=== PATIENT | male | born 1965 | race Hispanic/Latino ===

== ENCOUNTER 2022-06-23 18:24 | Emergency (ER) | payer OTHER ==
[~2022-06-23] VITALS: Ht 162.6 cm; Wt 89.4 kg
[2022-06-23] MEDS ORDERED: ACETAMINOPHEN 500 MG TABLET ONE (19:58)
[2022-06-23 20:00] VITALS: BP 166/85
[2022-06-23] MEDS ORDERED: ACETAMINOPHEN 500 MG TABLET PO ONE (20:00)
== END 2022-06-23 20:11 | disposition home or self-care (01) ==
LOC: EDH 18:24
DX: S80.11XA Contusion of right lower leg, initial encounter (principal); I10 Essential (primary) hypertension; E66.9 Obesity, unspecified; Z68.33 Body mass index [BMI] 33.0-33.9, adult; W19.XXXA Unspecified fall, initial encounter; Y93.89 Activity, other specified; Y92.098 Other place in other non-institutional residence as the place of occurrence of the external cause; Y99.8 Other external cause status
CPT/HCPCS: 93971

== ENCOUNTER 2022-07-25 17:46 | Emergency (ER) | payer OTHER ==
[~2022-07-25] VITALS: Ht 162.6 cm; Wt 88.9 kg
[2022-07-25 17:51] VITALS: BP 174/80
[2022-07-25] MEDS ORDERED: ACETAMINOPHEN 500 MG TABLET PO ONE (19:30)
[2022-07-25] MEDS ORDERED: ACET-66 PO (19:40)
== END 2022-07-25 19:55 | disposition home or self-care (01) ==
LOC: EDH 17:46
DX: M25.561 Pain in right knee (principal); M24.00 Loose body in unspecified joint; E78.00 Pure hypercholesterolemia, unspecified; I10 Essential (primary) hypertension; E66.9 Obesity, unspecified; Z68.33 Body mass index [BMI] 33.0-33.9, adult; W19.XXXA Unspecified fall, initial encounter; Y93.89 Activity, other specified; Y92.89 Other specified places as the place of occurrence of the external cause; Y99.8 Other external cause status
CPT/HCPCS: 73552; 73562

== ENCOUNTER 2022-11-12 15:24 | Emergency (ER) | payer BC ==
[~2022-11-12] VITALS: Ht 167.6 cm; Wt 87.5 kg
[~2022-11-12 15:24] MED LIST: ACET-66 PO
[2022-11-12] MEDS ORDERED: ACETAMINOPHEN 500 MG TABLET ONE (15:31)
[2022-11-12] MEDS ORDERED: ACETAMINOPHEN 500 MG TABLET PO ONE (16:00)
[2022-11-12 16:12] LABS: BASOPHILS % (AUTO) 0.3 % (0.0-5.0); EOSINOPHILS % (AUTO) 2.1 % (0.0-8.0); HEMATOCRIT 33.3 % (42-54); LYMPHOCYTES % (AUTO) 2.9 % (21.0-51.0); MEAN CORPUSCULAR HEMOGLOBIN 30.8 pg (27.0-33.0); MEAN CORPUSCULAR HGB CONC 35.7 g/dL (32.0-36.0); MEAN CORPUSCULAR VOLUME 86.3 fL (79-99); MONOCYTES % (AUTO) 8.3 % (3.0-13.0); NEUTROPHILS % (AUTO) 85.7 % (40.0-77.0); PLATELET COUNT (AUTO) 167 K/uL (130-400); RED BLOOD CELL COUNT(AUTO) 3.86 MIL/uL (4.50-6.20); RED CELL DISTRIBUTION WIDTH 13.2 % (11.0-15.5); WHITE BLOOD COUNT (AUTO) 7.3 K/uL (4.8-10.8)
[2022-11-12 16:30] LABS: APPEARANCE,URINE CLEAR (CLEAR); BILIRUBIN,URINE NEGATIVE (NEGATIVE); GLUCOSE, URINE (UA) NEGATIVE (NEGATIVE); KETONES,URINE NEGATIVE (NEGATIVE); LEUKOCYTE ESTERASE ,URINE NEGATIVE Leu/uL (NEGATIVE); NITRATE,URINE NEGATIVE (NEGATIVE); OCCULT BLOOD,URINE SMALL (NEGATIVE); PH,URINE 5.5 (5.0-8.0); PROTEIN,URINE 100 mg/dL (NEGATIVE); UROBILINOGEN,URINE 0.2 mg/dL (0.2-1.0)
[2022-11-12 16:30] LABS: ALBUMIN 3.5 g/dL (3.5-5.0); CREATININE 2.9 mg/dL (0.5-1.5); TOTAL PROTEIN, SERUM 6.8 g/dL (6.0-8.3)
[2022-11-12 16:35] LABS: COLOR,URINE Light-Yellow (YELLOW)
[2022-11-12 16:40] LABS: POTASSIUM 2.8 mmol/L (3.5-5.1)
[2022-11-12 16:47] LABS: BACTERIA,URINE RARE /HPF (None Seen); MUCUS,URINE RARE LPF (None Seen); RBC,URINE 0-1 /HPF (0-1); WBC,URINE 0-1 /HPF (0-1)
[2022-11-12] MEDS ORDERED: POTASSIUM BICARB/CIT AC 25 MEQ TABLET.EFF PO ONE (17:30)
[2022-11-12 19:17] VITALS: BP 151/89
== END 2022-11-12 19:28 | disposition home or self-care (01) ==
LOC: EDH 15:24
DX: U07.1 COVID-19 (principal); R50.9 Fever, unspecified; E87.6 Hypokalemia; I10 Essential (primary) hypertension; I25.2 Old myocardial infarction; E78.00 Pure hypercholesterolemia, unspecified; Z79.899 Other long term (current) drug therapy
CPT/HCPCS: 99284; 71045; 87635; 84484; 80053; 85025; 87040 ×2; 87804 ×2; 83605; 81001; 36415; 93005; C9803

== ENCOUNTER 2022-12-26 10:41 | Emergency (ER) | payer BC ==
[~2022-12-26] VITALS: Ht 162.6 cm; Wt 87.5 kg
[2022-12-26 11:31] LABS: BASOPHILS % (AUTO) 0.2 % (0.0-5.0); EOSINOPHILS % (AUTO) 1.2 % (0.0-8.0); HEMATOCRIT 33.5 % (42-54); LYMPHOCYTES % (AUTO) 2.8 % (21.0-51.0); MEAN CORPUSCULAR HEMOGLOBIN 30.6 pg (27.0-33.0); MEAN CORPUSCULAR HGB CONC 36.4 g/dL (32.0-36.0); MONOCYTES % (AUTO) 5.8 % (3.0-13.0); NEUTROPHILS % (AUTO) 89.7 % (40.0-77.0); PLATELET COUNT (AUTO) 169 K/uL (130-400); RED BLOOD CELL COUNT(AUTO) 3.99 MIL/uL (4.50-6.20); RED CELL DISTRIBUTION WIDTH 12.7 % (11.0-15.5); WHITE BLOOD COUNT (AUTO) 11.6 K/uL (4.8-10.8)
[2022-12-26 11:46] LABS: ALBUMIN 3.5 g/dL (3.5-5.0); TOTAL PROTEIN, SERUM 7.3 g/dL (6.0-8.3)
[2022-12-26] MEDS ORDERED: ACETAMINOPHEN 500 MG TABLET PO ONE (12:00)
[2022-12-26] MEDS ORDERED: ACETAMINOPHEN 500 MG TABLET PO SCH (12:00)
[2022-12-26] MEDS ORDERED: KCL 20 MEQ ERTAB PO ONE (12:30)
[2022-12-26] MEDS ORDERED: 0.9%NACL 1000ML 1,000 ML IV ONE (12:30)
[2022-12-26 12:31] LABS: APPEARANCE,URINE CLEAR (CLEAR); BILIRUBIN,URINE NEGATIVE (NEGATIVE); COLOR,URINE COLORLESS (YELLOW); GLUCOSE, URINE (UA) NEGATIVE (NEGATIVE); KETONES,URINE NEGATIVE (NEGATIVE); LEUKOCYTE ESTERASE ,URINE NEGATIVE Leu/uL (NEGATIVE); NITRATE,URINE NEGATIVE (NEGATIVE); OCCULT BLOOD,URINE SMALL (NEGATIVE); PH,URINE 5.5 (5.0-8.0); PROTEIN,URINE 100 mg/dL (NEGATIVE); UROBILINOGEN,URINE 0.2 mg/dL (0.2-1.0)
[2022-12-26] MEDS: KETOROLAC 15MG/ML VIAL (15MG/ML) IV ONE ×2 (12:43→12:45)
[2022-12-26 12:56] LABS: MUCUS,URINE RARE LPF (None Seen); RBC,URINE 0-1 /HPF (0-1)
[2022-12-26] MEDS ORDERED: CEFTRIAXONE 1G VIAL IVP ONE (13:30)
[2022-12-26] MEDS ORDERED: CEFU500T67 PO (14:34)
[2022-12-26 14:48] VITALS: BP 143/79
== END 2022-12-26 14:50 | disposition home or self-care (01) ==
LOC: EDH 10:41
DX: R50.9 Fever, unspecified (principal); D72.829 Elevated white blood cell count, unspecified; I10 Essential (primary) hypertension; E78.00 Pure hypercholesterolemia, unspecified; Z20.822 Contact with and (suspected) exposure to COVID-19
CPT/HCPCS: 99283; 96374; 87635; 96361; 80053; 85025; 87804 ×2; 81001; 36415; C9803; J7030; J0696; J1885

== ENCOUNTER 2024-09-09 03:25 | Emergency (ER) | payer BC ==
[~2024-09-09] VITALS: Ht 162.6 cm; Wt 87.1 kg
[~2024-09-09 03:25] MED LIST changes: +CEFU500T67 PO
[2024-09-09] MEDS: ondanSETRON 4MG INJ IVP ONE (03:43)
[2024-09-09] MEDS: PANTOPrazole 40 MG/VIAL IVP ONE (03:44)
[2024-09-09] MEDS: LACTATED RINGERS 1000ML 1,000 ML IV ONE (03:46)
[2024-09-09 03:49] LABS: BASOPHILS # (AUTO) 0.03 K/uL (0.00-0.20); BASOPHILS % (AUTO) 0.4 % (0.0-5.0); EOSINOPHILS # (AUTO) 0.39 K/uL (0.00-0.70); EOSINOPHILS % (AUTO) 4.6 % (0.0-8.0); HEMATOCRIT 21.8 % (42-54); IMMATURE GRANULOCYTE ABSOLUTE 0.06 K/uL (0-1); LYMPHOCYTES # (AUTO) 0.6 K/uL (1.0-4.8); LYMPHOCYTES % (AUTO) 7.3 % (21.0-51.0); MEAN CORPUSCULAR HEMOGLOBIN 31.6 pg (27.0-33.0); MEAN CORPUSCULAR HGB CONC 35.3 g/dL (32.0-36.0); MEAN CORPUSCULAR VOLUME 89.3 fL (79-99); MONOCYTES # (AUTO) 0.5 K/uL (0.1-1.0); MONOCYTES % (AUTO) 6.2 % (3.0-13.0); NEUTROPHILS # (AUTO) 6.9 K/uL (1.8-7.7); NEUTROPHILS % (AUTO) 80.8 % (40.0-77.0); PLATELET COUNT (AUTO) 169 K/uL (130-400); RED BLOOD CELL COUNT(AUTO) 2.44 MIL/uL (4.50-6.20); RED CELL DISTRIBUTION WIDTH 13.9 % (11.0-15.5); WHITE BLOOD COUNT (AUTO) 8.5 K/uL (4.8-10.8)
--- NOTE | 2024-09-09 04:01 | NUR ---
PT NOT COOPERATING WITH QUESTIONING. SPOUSE AT BEDSIDE ANSWERING QUESTIONS. PT SHOWS NO SIGNS OF DISTRESS.
[2024-09-09 04:04] LABS: ALBUMIN 3.6 g/dL (3.5-5.0); BILIRUBIN,TOTAL 0.4 mg/dL (0.2-1.0); POTASSIUM 4.1 mmol/L (3.5-5.1); TOTAL PROTEIN, SERUM 7.2 g/dL (6.0-8.3)
[2024-09-09 04:07] LABS: CREATININE 8.2 mg/dL (0.5-1.3)
--- NOTE | 2024-09-09 04:25 | NUR ---
NOTIFIED ABOUT BUN AND CR CRITICAL LAB VALUES. NO ORDERS GIVEN AT THIS TIME
[2024-09-09] MEDS ORDERED: ONDA-243 PO (05:21)
--- NOTE | 2024-09-09 05:21 | ERN ---
General Chief Complaint: Nausea,Vomiting,Diarrhea Stated Complaint: C/O N X V; Time Seen by MD: 03:28 Source: patient History of Present Illness Initial Comments Patient is a 59-year-old male coming in to be evaluated for multiple episodes of diarrhea and vomiting. Per patient he was started earlier today came in to be evaluated. Family members had some symptoms. Allergies: Coded Allergies: No Known Allergies (Unverified Allergy, Unknown, 06/23/22) Home Meds Active Scripts Ondansetron (Ondansetron Odt) 4 Mg Tab.rapdis, 4 MG PO BID PRN for NAUSEA/VOMITING for 3 Days, #6 TAB Prov:MATTY KNAPP MD 09/09/24 Cefuroxime Axetil (Cefuroxime) 500 Mg Tablet, 500 MG PO BID for 7 Days, #14 TAB Prov:NHI LINDSEY MD 12/26/22 Acetaminophen (Tylenol) 500 Mg Tab, 500 MG PO Q4HPRN PRN for PAIN, #30 TAB Prov:MARY PLASENCIA 07/25/22 Past Medical History Past Medical History: Hypertension, Renal Failure Medical History Other: Obesity Past Surgical History: None Surgical History Other: CATARACTS Family History Family History: Negative Social History Social History: Lives with family ROS Dictation CONSTITUTIONAL: No chills, no fever, no weakness, no diaphoresis, no malaise. HEAD/FACE: No signs of trauma. EENT: No eye pain, no blurred vision, no tearing, no double vision, no ear pain, no ear discharge, no nose pain, no nasal congestion, no throat pain, no throat swelling, no mouth pain. RESPIRATORY: No cough, no orthopnea, no SOB, no stridor, no wheezing. CARDIOVASCULAR: No chest pain, no edema, no palpitations, no syncope. GASTROINTESTINAL/ABDOMINAL: No abdominal pain, no constipation, no diarrhea, nausea, vomiting. GENITOURINARY: No abnormal discharge, no dysuria, no frequent urination, no hematuria. No complaints of pain in the genitals. MUSCULOSKELETAL: No back pain, no gout, no joint pain, no joint swelling, no muscle pain, no muscle stiffness, no neck pain. INTEGUMENTARY: No change in color, no change in hair/nails, no dryness, no lesion, no lumps, no rash. NEUROLOGICAL/PSYCH: No anxiety, not depressed, no emotional problem, no headache, no numbness, no pre-existing deficit, no history of seizures, no tremors, no weakness. HEMATOLOGIC/LYMPHATIC: Not anemic, no history of blood clots, no apparent bleeding, no bruising, glands not swollen. All Systems Negative, Except as Noted. Physical Exam Physical Exam Dictation VITAL SIGNS: Reviewed. GENERAL APPEARANCE: Alert, oriented x3, no acute distress, obese. HEAD AND FACE: Non-traumatic. EYES: PERRL, pink conjunctivas, eyelid no trauma, anterior chamber clear. EARS: Pinnas intact and no signs of trauma or erythema. Ear canals clear and no discharge. TMs no erythema. NOSE: No discharge, no bleeding. OROPHARYNX: Mouth normal, teeth no caries, tongue pink. Pharynx clear, no erythema. Tonsils no exudates, no abscesses noted. Mucous membrane moist. NECK: Supple, non-tender, no thyromegaly, no masses, no JVD, no bruits. BREAST: Deferred. CHEST: No tenderness, no crepitus, no paradoxical movement, no retractions. LUNGS: Clear, well-ventilated, symmetric, no rales, no wheezing, no rhonchi, no stridor, good breath sounds bilaterally. HEART: Regular rate, regular rhythm, no murmur, no gallops. VASCULAR: No peripheral edema. ABDOMEN: Soft, positive bowel sounds, nondistended, no guarding, nontender, no rebound, no masses no hepatomegaly, no splenomegaly, no Ponce's sign, no hernias. RECTAL: Deferred. GENITAL: Deferred. NEUROLOGICAL: Normal speech, gross motor function intact, gross sensory function intact. MUSCULOSKELETAL: Neck nontender, full range of motion, back nontender, full range of motion. EXTREMITIES: Nontender, full range of motion. SKIN: Color pink, dry, no turgor, no rash, no lacerations, no abrasions, no con tusions. LYMPHATICS: Deferred. Results Laboratory and Microbiology Lab and Micro Result Laboratory Tests Test 09/09/24 03:40 White Blood Count 8.5 K/uL (4.8-10.8) Red Blood Count 2.44 MIL/uL (4.50-6.20) L Hemoglobin 7.7 g/dL (14.0-18.0) L Hematocrit 21.8 % (42-54) L Mean Corpuscular Volume 89.3 fL (79-99) Mean Corpuscular Hemoglobin 31.6 pg (27.0-33.0) Mean Corpuscular Hemoglobin Concent 35.3 g/dL (32.0-36.0) Red Cell Distribution Width 13.9 % (11.0-15.5) Platelet Count 169 K/uL (130-400) Mean Platelet Volume 9.0 fL (7.5-10.5) Immature Granulocyte % (Auto) 0.7 % (0-1) Neutrophils (%) (Auto) 80.8 % (40.0-77.0) H Lymphocytes (%) (Auto) 7.3 % (21.0-51.0) L Monocytes (%) (Auto) 6.2 % (3.0-13.0) Eosinophils (%) (Auto) 4.6 % (0.0-8.0) Basophils (%) (Auto) 0.4 % (0.0-5.0) Neutrophils # (Auto) 6.9 K/uL (1.8-7.7) Lymphocytes # (Auto) 0.6 K/uL (1.0-4.8) L Monocytes # (Auto) 0.5 K/uL (0.1-1.0) Eosinophils # (Auto) 0.39 K/uL (0.00-0.70) Basophils # (Auto) 0.03 K/uL (0.00-0.20) Absolute Immature Granulocyte (auto 0.06 K/uL (0-1) Nucleated Red Blood Cells 0.0 % (0.0-0.19) White Cell Morphology Comment See comments Sodium Level 142 mmol/L (136-145) Potassium Level 4.1 mmol/L (3.5-5.1) Chloride Level 105 mmol/L (101-111) Carbon Dioxide Level 19 mmol/L (21-32) L Blood Urea Nitrogen 108 mg/dL (7-18) *H Creatinine 8.2 mg/dL (0.5-1.3) *H Glomerular Filtration Rate Calc 7 mL/min (>90) Random Glucose 135 mg/dL (70-105) H Total Calcium 8.5 mg/dL (8.5-10.1) Total Bilirubin 0.4 mg/dL (0.2-1.0) Aspartate Amino Transf (AST/SGOT) 15 U/L (10-37) Alanine Aminotransferase (ALT/SGPT) 20 U/L (12-78) Alkaline Phosphatase 75 U/L (50-136) Total Creatine Kinase 103 U/L (21-232) Troponin I High Sensitivity 15 ng/L (4-75) Total Protein 7.2 g/dL (6.0-8.3) Albumin 3.6 g/dL (3.5-5.0) Lipase 147 U/L (16-77) H Labs Reviewed?: Yes EKG/XRAY/US/CT/MRI EKG Comment 09/09/2024 time 4:14 a.m. Ventricular rate [address] wave elevation or depression MDM MDM: Differential diagnosis: Gastroenteritis, viral gastroenteritis, small-bowel obstruction, constipation, Patient is a 59-year-old male coming in to be evaluated for multiple episodes of vomiting. Per family member at bedside patient had had these symptoms earlier today he was brought in for further evaluation. Throughout ER visit patient has been stable has not presented with vomiting episodes patient was hydrated with IV fluids. Patient does has a history of end-stage renal disease requiring dialysis with the patient was reluctant get dialysis. ED Course Orders Procedure Category Date Status Time Cbc With Differential LAB 09/09/24 Complete 03:32 Comprehensive LAB 09/09/24 Complete Metabolic Panel 03:32 Troponin I High LAB 09/09/24 Complete Sensitivity 03:32 Urinalysis Profile LAB 09/09/24 Logged 03:32 12 Lead Ekg Tracing- EKG 09/09/24 Logged Technical 03:32 Lactated Ringers PHA 09/09/24 Complete 1000ml (Lactated 04:00 Ondansetron 4mg Inj PHA 09/09/24 Complete (Zofran 4mg Inj) 04:00 Pantoprazole 40mg Inj PHA 09/09/24 Complete (Protonix 40mg Inj 04:00 Creatine Kinase, Total LAB 09/09/24 Complete 03:32 Lipase LAB 09/09/24 Complete 03:32 Current Medications Medications (Trade) Dose Ordered Sig/Jeannine Route PRN Reason Start Time Stop Time Status Last Admin Dose Admin Lactated Ringer's 1,000 ml @ 0 mls/hr ONCE ONCE IV 09/09/24 04:00 09/09/24 04:01 DC 09/09/24 03:46 Ondansetron HCl (zoFRAN 4MG INJ) 4 mg ONCE ONCE IVP 09/09/24 04:00 09/09/24 04:01 DC 09/09/24 03:43 Pantoprazole Sodium (PROTonix 40MG INJ) 40 mg ONCE ONCE IVP 09/09/24 04:00 09/09/24 04:01 DC 09/09/24 03:44 Vital Signs Date Time Temp Pulse Resp B/P (MAP) Pulse Ox O2 Delivery O2 Flow Rate FiO2 09/09/24 05:23 63 11 146/76 99 Room Air* 0 21 09/09/24 03:35 68 11 156/73 96 Room Air* 0 21 09/09/24 03:27 98.4 82 20 173/77 96 Room Air DX & DISP Disposition: Discharge Departure Impression: Primary Impression: Viral gastroenteritis Additional Impression: ESRD needing dialysis Condition: Stable Scripts Ondansetron (Ondansetron Odt) 4 Mg Tab.rapdis 4 MG PO BID PRN for NAUSEA/VOMITING for 3 Days, #6 TAB Prov: MATTY KNAPP MD 09/09/24 Additional Instructions: FOLLOW-UP WITH PRIMARY CARE PROVIDER IN 1 TO 2 DAYS. TAKE MEDICATIONS DIRECTED HERE IN THE EMERGENCY ROOM. OKAY TO CONTINUE HOME MEDICATIONS UNLESS OTHERWISE DISCUSSED DURING YOUR VISIT IN THE EMERGENCY ROOM TODAY. RETURN TO YOUR NEAREST EMERGENCY ROOM IF SYMPTOMS WORSEN OR IF THERE IS NO IMPROVEMENT. CALL 911 IF YOU NEED IMMEDIATE ASSISTANCE. TAKE TYLENOL [id number] NEEDED AND IF NO CONTRAINDICATIONS ARE PRESENT. INCREASE ORAL HYDRATION. A WOUND CULTURE OR URINE CULTURE WAS ORDERED HERE IN THE EMERGENCY ROOM DEPARTMENT PLEASE FOLLOW-UP WITH PRIMARY CARE PROVIDER AND ADVISE THEM TO GET REPEAT PORTS FROM OUR FACILITY. IF YOU HAD ANY JOSE WRAP/SPLINTS THAT WERE APPLIED HERE, PLEASE DO NOT REMOVE THEM UNTIL YOU SEE YOUR PRIMARY CARE OR SPECIALTY. Referrals: Referrals: MEHDI SOLANO DO (PCP) Time of Disposition: 05:20 MATTY KNAPP MD Sep 09, 2024 05:21
[2024-09-09 07:35] VITALS: BP 144/75; PULSE 60; RESP 16; TEMP 98.4; O2SAT 99
--- NOTE | 2024-09-09 07:46 | EKG ---
[facility] Test Date: 2024-09-09 Test Time: 04:14:46 Pat Name: ANGY ZELAYA Department: [facility] Room: Gender: M Paper Folder: [id number] : [id number] Requested By: MATTY KNAPP Order Number: [id number] Reading MD: Sridhar Buckley Measurements Intervals [place] Rate: 66 P: 51 VT: 183 QRS: -4 QRSD: 112 T: 3 QT: 409 QTc: 428 Interpretive Statements Sinus rhythm Borderline ST elevation, lateral leads Compared to ECG 11/12/2022 15:31:14 Left bundle-branch block now present ST (T wave) deviation now present Sinus tachycardia no longer present T-wave abnormality no longer present Possible ischemia no longer present Electronically Signed On 09-09-2024 15:46:11 CANCER REGISTRAR by Sridhar Buckley Please click the below link to view image of tracing.
== END 2024-09-09 08:12 | disposition home or self-care (01) ==
LOC: EDH 03:25
DX: A08.4 Viral intestinal infection, unspecified (principal); R11.2 Nausea with vomiting, unspecified; I12.0 Hypertensive chronic kidney disease with stage 5 chronic kidney disease or end stage renal disease; N18.6 End stage renal disease; E66.9 Obesity, unspecified; Z99.2 Dependence on renal dialysis; Z68.33 Body mass index [BMI] 33.0-33.9, adult
CPT/HCPCS: 99284; 96374; 96375; 82550; 84484; 80053; 83690; 85025; 36415; 93005; J7120; J2405; J2470